=== PATIENT | male | born 1985 | race Caucasian/White ===

== ENCOUNTER 2016-09-29 18:48 | Emergency (ER) | payer SELFPAY ==
[~2016-09-29] VITALS: Ht 175.3 cm; Wt 87.8 kg
[2016-09-29] MEDS ORDERED: OXYcodone/APAP 5/325MG TABLET ONE (19:25)
[2016-09-29] MEDS ORDERED: OXYcodone/APAP 5/325MG TABLET PO ONE (19:30)
[2016-09-29 20:29] VITALS: BP 114/67
== END 2016-09-29 20:31 | disposition home or self-care (01) ==
LOC: ED 20:21
DX: S62.344A Nondisplaced fracture of base of fourth metacarpal bone, right hand, initial encounter for closed fracture (principal); S62.346A Nondisplaced fracture of base of fifth metacarpal bone, right hand, initial encounter for closed fracture; X58.XXXA Exposure to other specified factors, initial encounter; Y93.89 Activity, other specified; Y99.8 Other external cause status; Y92.009 Unspecified place in unspecified non-institutional (private) residence as the place of occurrence of the external cause
CPT/HCPCS: 29125

== ENCOUNTER → 2016-10-02 | Outpatient (CLI) | payer SELFPAY | END | disposition home or self-care (01) | LOC: RAD 17:23 | PROVIDERS: ATTEND Physician Assistant | DX: S62.316A Displaced fracture of base of fifth metacarpal bone, right hand, initial encounter for closed fracture (principal); S62.344A Nondisplaced fracture of base of fourth metacarpal bone, right hand, initial encounter for closed fracture; X58.XXXA Exposure to other specified factors, initial encounter; Y93.89 Activity, other specified; Y92.89 Other specified places as the place of occurrence of the external cause; Y99.8 Other external cause status ==